=== PATIENT | female | born 1975 | race Caucasian/White ===

== ENCOUNTER 2023-05-06 19:31 | Emergency (ER) | payer BC, OTHER, SELFPAY | END 2023-05-06 20:42 | disposition home or self-care (01) | LOC: MADERS 19:31 | DX: M77.11 Lateral epicondylitis, right elbow (principal); I10 Essential (primary) hypertension; E11.9 Type 2 diabetes mellitus without complications; F17.210 Nicotine dependence, cigarettes, uncomplicated; Z79.4 Long term (current) use of insulin ==

== ENCOUNTER 2023-06-14 19:26 | Emergency (ER) | payer OTHER ==
[2023-06-14] MEDS ORDERED: Ibuprofen 200 MG/10 ML ORAL.SUSP ONE (19:54)
[2023-06-14] MEDS ORDERED: HYDROcodone/Acetaminophen 10/325 mg Tablet ONE (19:54)
[2023-06-14] MEDS ORDERED: Ibuprofen 800 MG TAB ONE (19:55)
[2023-06-14] MEDS ORDERED: Sulfameth/Trimethoprim DS 800-160mg TAB ONE (19:55)
[2023-06-14] MEDS ORDERED: Lidocaine 1% w/Epinephrine 1:100K 20 ML VIAL ONE (20:06)
== END 2023-06-14 20:20 | disposition home or self-care (01) ==
LOC: MADERS 19:26
DX: L02.412 Cutaneous abscess of left axilla (principal); E11.9 Type 2 diabetes mellitus without complications; I10 Essential (primary) hypertension; F17.210 Nicotine dependence, cigarettes, uncomplicated
CPT/HCPCS: 10060

== ENCOUNTER 2023-07-16 20:03 | Emergency (ER) | payer OTHER ==
[~2023-07-16 20:03] MED LIST: Iopamidol 370 76% 100 ML VIAL ONE
[2023-07-16 20:18] LABS: Hematocrit 56.9 % (36.0-47.0); Hemoglobin 17.8 g/dL (12.0-16.0); Lymphocytes 7 % (21-51); MDiff Complete? YES; Mean Corpuscular HGB CONC 31.2 g/dL (32.0-36.0); Mean Corpuscular Volume 92.9 fl (78.0-98.0); Monocytes 5 % (0-10); Neutrophil 88 % (42-75); Platelet Count 211 10x3/uL (130-400); RBC Distribution Width 13.6 % (11.5-14.5); Red Blood Cell (RBC) Count 6.13 mill/uL (4.20-5.40)
[2023-07-16 20:32] LABS: BHCG - Serum Negative (NEGATIVE); Pregs Control Background? CLEAR/WHITE (CLR/WHITE); Pregs Control Bar Appear? YES (CONTROL BAR)
[2023-07-16] MEDS ORDERED: Acetaminophen 500 MG TAB ONE (20:41)
[2023-07-16] MEDS ORDERED: Lactated Ringer's 1,000 ML ONE ×2 (20:41→21:37)
[2023-07-16] MEDS ORDERED: Aspirin Chewable 81 MG TAB ONE (20:41)
[2023-07-16] MEDS ORDERED: Orphenadrine Citrate 60 MG/2 ML VIAL ONE (20:41)
[2023-07-16] MEDS ORDERED: Ondansetron PF 4 MG/2 ML Vial ONE (20:41)
[2023-07-16 20:42] LABS: ALT (SGPT) 26 U/L (8-55); AST (SGOT) 28 U/L (5-34); Albumin 4.7 g/dL (3.5-5.0); Alkaline Phosphatase 89 U/L (40-110); Anion Gap 22 mmol/L (10-20); BUN (Urea Nitrogen) 12 mg/dL (7.0-18.7); Bilirubin, Total 0.5 mg/dL (0.2-1.2); Calc. Creatinine Clearance 0 mL/min (70-130); Calcium 9.1 mg/dL (7.8-10.44); Carbon Dioxide 18 mmol/L (22-29); Chloride 102 mmol/L (98-107); Estimated GFR 80; Globulin 2.8 g/dL (2.4-3.5); Glucose 198 mg/dL (70-105); Lipase 21 U/L (8-78); Potassium 4.4 mmol/L (3.5-5.1); Protein, Total 7.5 g/dL (6.0-8.3); Sodium 138 mmol/L (136-145); Troponin I 0.014 ng/mL (< 0.028)
[2023-07-16 20:58] LABS: Magnesium 1.8 mg/dL (1.6-2.6)
[2023-07-16] MEDS ORDERED: Ketorolac Tromethamine 30 MG/ML VIAL ONE (21:37)
[2023-07-16 21:58] LABS: Bilirubin Negative (Negative); Blood, Urine Trace (Negative); Clarity Clear (Clear); Glucose, Urine (Dipstick) 500 mg/dL (Negative); Ketone, Urine 40 mg/dL (Negative); Leukocyte Negative (Negative); Nitrite Negative (Negative); Protein, Urine (Dipstick) Negative (Neg-Trace); Specific Gravity, Urine 1.015 (1.005-1.030); Urobilinogen 0.2 mg/dL (Less than 2)
[2023-07-16 21:59] LABS: CAUTI Indications for Culture Fever or rigors; RBC/HPF None Seen HPF (0-3); Squamous Epithelial 0-3 HPF (0-3); WBC/HPF None Seen HPF (0-3); Yeast-Budding 1+ HPF (None Seen)
[2023-07-16 22:00] LABS: Urine Culture Reflex No No
[2023-07-16 22:06] LABS: Amphetamine Not Detected (NotDetected); Barbiturates Screen Not Detected (NotDetected); Benzodiazepine Screen Not Detected (NotDetected); Cocaine Metabolite Screen Not Detected (NotDetected); Methadone Not Detected (NotDetected); Methamphetamine Not Detected (NotDetected); Opiate Screen Not Detected (NotDetected); Oxycodone Screen Not Detected (NotDetected); Phencyclidine (PCP) Not Detected (NotDetected); THC/Cannabinoid Screen Not Detected (NotDetected); Tricyclic Screen Not Detected (NotDetected)
[2023-07-16] MEDS ORDERED: Azithromycin 500 MG VIAL ONE (22:21)
[2023-07-16] MEDS ORDERED: Sodium Chloride 0.9% 250 ML 250 ML ONE (22:21)
[2023-07-16] MEDS ORDERED: cefTRIAXone (ROCEPHIN) 2 GM VIAL ONE (22:21)
[2023-07-16] MEDS ORDERED: Sodium Chloride 0.9% 100 ML ONE (22:21)
[2023-07-16] MEDS ORDERED: Sodium Chloride 0.9% 500 ML ONE (22:21)
[2023-07-16] MEDS ORDERED: Benzonatate 100 MG CAP ONE (23:04)
[2023-07-16] MEDS ORDERED: Prochlorperazine 10 MG/2 ML VIAL ONE (23:04)
[2023-07-16] MEDS ORDERED: Nitroglycerin 0.4 MG TAB 1 EACH ONE (23:04)
[2023-07-16 23:43] LABS: Troponin I 0.014 ng/mL (< 0.028)
== END 2023-07-17 00:22 | disposition home or self-care (01) ==
LOC: MADERS 20:03
DX: J18.9 Pneumonia, unspecified organism (principal); R07.9 Chest pain, unspecified; E86.0 Dehydration; F17.210 Nicotine dependence, cigarettes, uncomplicated; E78.5 Hyperlipidemia, unspecified; Z79.4 Long term (current) use of insulin; I10 Essential (primary) hypertension; E11.40 Type 2 diabetes mellitus with diabetic neuropathy, unspecified; Z79.899 Other long term (current) drug therapy
CPT/HCPCS: 36416; 71045; 71275; 80053; 80306; 81001; 83605; 83690; 83735; 84484; 84703; 85025; 85379; 87040; 87804; 93005; 94760; 96361; 96365; 96367; 96372; 96375; J0456; J0696; J0780; J1885; J2360; J2405; J3490; J7030; J7050; J7120; Q9967

== ENCOUNTER 2023-10-11 19:49 | Emergency (ER) | payer OTHER ==
[2023-10-11 21:34] LABS: #Basophils 0.1 thou/uL (0.0-0.2); #Eosinphils 0.3 thou/uL (0.0-0.7); #Lymphocytes 2.6 thou/uL (1.20-3.40); #Monocytes 0.9 thou/uL (0.11-0.59); %Basophils 1.2 % (0.0-1.0); %Eosinophils 2.5 % (0.0-10.0); %Lymphocytes 26.4 % (21.0-51.0); %Monocytes 8.8 % (0.0-10.0); Hematocrit 51.8 % (36.0-47.0); Hemoglobin 16.4 g/dL (12.0-16.0); Mean Corpuscular HGB CONC 31.7 g/dL (32.0-36.0); Mean Corpuscular Volume 91.7 fl (78.0-98.0); Mean Platelet Volume 8.4 fL (7.4-10.4); Platelet Count 264 10x3/uL (130-400); RBC Distribution Width 13.4 % (11.5-14.5); Red Blood Cell (RBC) Count 5.65 mill/uL (4.20-5.40); White Blood Cell (WBC) Count 9.9 10x3/uL (4.8-10.8)
[2023-10-11] MEDS ORDERED: Lidocaine 4% Patch ONE (21:38)
[2023-10-11] MEDS ORDERED: Orphenadrine Citrate 60 MG/2 ML VIAL ONE (21:38)
[2023-10-11 21:51] LABS: ALT (SGPT) 18 U/L (8-55); AST (SGOT) 20 U/L (5-34); Albumin 4.5 g/dL (3.5-5.0); Alkaline Phosphatase 85 U/L (40-110); Anion Gap 15 mmol/L (10-20); BUN (Urea Nitrogen) 17 mg/dL (7.0-18.7); Bilirubin, Total 0.3 mg/dL (0.2-1.2); Calc. Creatinine Clearance 0 mL/min (70-130); Calcium 9.1 mg/dL (7.8-10.44); Carbon Dioxide 21 mmol/L (22-29); Chloride 108 mmol/L (98-107); Estimated GFR 78; Globulin 2.7 g/dL (2.4-3.5); Glucose 85 mg/dL (70-105); Protein, Total 7.2 g/dL (6.0-8.3); Sodium 140 mmol/L (136-145)
== END 2023-10-11 22:37 | disposition home or self-care (01) ==
LOC: MADERS 19:49
DX: M25.552 Pain in left hip (principal); I10 Essential (primary) hypertension; E78.5 Hyperlipidemia, unspecified; E11.42 Type 2 diabetes mellitus with diabetic polyneuropathy; F17.210 Nicotine dependence, cigarettes, uncomplicated; Z79.4 Long term (current) use of insulin; Z79.899 Other long term (current) drug therapy
CPT/HCPCS: 36415; 80053; 85025; 85379; 86140; 96372; J2360

== ENCOUNTER 2025-05-15 19:21 | Emergency (ER) | payer OTHER ==
[2025-05-15] MEDS ORDERED: Nitroglycerin 0.4 MG TAB 1 EACH ONE (19:34)
[2025-05-15] MEDS ORDERED: Acetaminophen 500 MG TAB ONE (19:34)
[2025-05-15] MEDS ORDERED: Aspirin Chewable 81 MG TAB ONE (19:34)
[2025-05-15 19:48] LABS: #Basophils 0.1 thou/uL (0.0-0.2); #Eosinophils 0.3 thou/uL (0.0-0.7); #Lymphocytes 2.8 thou/uL (1.20-3.40); #Monocytes 0.7 thou/uL (0.11-0.59); #Neutrophils 5.2 thou/uL (1.40-6.50); %Basophils 0.9 % (0.0-1.0); %Eosinophils 3.6 % (0.0-10.0); %Lymphocytes 30.9 % (21.0-51.0); %Monocytes 7.3 % (0.0-10.0); %Neutrophils 57.4 % (42.0-75.0); Hematocrit 45.7 % (36.0-47.0); Hemoglobin 15.4 g/dL (12.0-16.0); Mean Corpuscular Hemoglobin 29.7 pg (27.0-31.0); Mean Corpuscular Volume 88.2 fl (78.0-98.0); Platelet Count 273 10x3/uL (130-400); Red Blood Cell (RBC) Count 5.18 mill/uL (4.20-5.40); White Blood Cell (WBC) Count 9.1 10x3/uL (4.8-10.8)
[2025-05-15 20:08] LABS: ALT (SGPT) 34 U/L (Less than 34); AST (SGOT) 31 U/L (11-34); Albumin 4.3 g/dL (3.1-4.5); Alkaline Phosphatase 103 U/L (40-110); Anion Gap 18 mmol/L (10-20); BUN (Urea Nitrogen) 17 mg/dL (7.0-18.7); Bilirubin, Total 0.4 mg/dL (0.3-1.2); Calc. Creatinine Clearance 0 mL/min (70-130); Calcium 9.0 mg/dL (7.8-10.44); Carbon Dioxide 17 mmol/L (22-29); Chloride 107 mmol/L (98-107); Globulin 2.4 g/dL (2.4-3.5); Glucose 201 mg/dL (70-105); Lipase 34 U/L (8-78); Potassium 3.9 mmol/L (3.5-5.1); Sodium 138 mmol/L (136-145); Troponin I Less than 0.010 ng/mL (< 0.028)
== END 2025-05-15 21:24 | disposition short-term general hospital (02) ==
LOC: MADERS 19:21
DX: R07.89 Other chest pain (principal); I10 Essential (primary) hypertension; E11.42 Type 2 diabetes mellitus with diabetic polyneuropathy; E78.5 Hyperlipidemia, unspecified; F17.210 Nicotine dependence, cigarettes, uncomplicated
CPT/HCPCS: 36416; 71045; 80053; 83690; 83880; 84484; 85025; 93005; 96374; J3010; J7120